=== PATIENT | male | born 1960 | race Caucasian/White ===

== ENCOUNTER 2022-09-05 14:24 | Outpatient (CLI) | payer OTHER | END 2022-09-05 23:00 | disposition home or self-care (01) | LOC: LAB 14:24 | PROVIDERS: ATTEND Radiology Diagnostic Radiology | DX: D12.8 Benign neoplasm of rectum (principal) ==

== ENCOUNTER 2022-09-06 08:07 | Outpatient (CLI) | payer OTHER | END 2022-09-06 08:24 | disposition home or self-care (01) | LOC: MRI 08:07 | PROVIDERS: ATTEND Surgery | DX: D12.8 Benign neoplasm of rectum (principal); D37.5 Neoplasm of uncertain behavior of rectum; K92.1 Melena; Z83.71 Family history of colonic polyps | CPT/HCPCS: 72196 ==